=== PATIENT | male | born 1980 | race Caucasian/White ===

== ENCOUNTER 2019-11-20 16:49 | Emergency (ER) | payer MEDICAID ==
[~2019-11-20] VITALS: Ht 165.1 cm; Wt 78.0 kg
[2019-11-20 16:50] VITALS: BP 119/78
[2019-11-20] MEDS ORDERED: TETANUS, DIPHTHERIA, PERTUSSIS VAC/PF 0.5ML (>7YR OLD) IM ONE (18:45)
[2019-11-20] MEDS ORDERED: BACITRACIN ZINC OINT UDPKT TOP ONE (18:45)
[2019-11-20] MEDS ORDERED: LIDOCAINE HCL/PF 1% 10 MG/ML 5ML VIAL IJ ONE (18:45)
== END 2019-11-20 21:15 | disposition left against medical advice (07) ==
LOC: ER 16:49
DX: S61.412A Laceration without foreign body of left hand, initial encounter (principal); W26.1XXA Contact with sword or dagger, initial encounter; Y93.E8 Activity, other personal hygiene; Y92.9 Unspecified place or not applicable
CPT/HCPCS: 73110; 90471; 90715; 99283; J3490